=== PATIENT | male | born 2005 | race Caucasian/White ===

== ENCOUNTER 2024-05-08 23:00 | Emergency (ER) | payer OTHER ==
[~2024-05-08] VITALS: Ht 175.3 cm; Wt 84.0 kg
[2024-05-08 23:02] VITALS: O2SAT 97
[2024-05-08 23:07] VITALS: BP 139/82; PULSE 84; RESP 18; TEMP 38.8; O2SAT 98
[2024-05-09 00:05] LABS: BASOPHILS % 0.5 % (0.0-2.0); EOSINOPHILS % 0.3 % (0.0-5.0); HEMATOCRIT. 44.3 % (42.0-52.0); HEMOGLOBIN. 15.2 g/dL (14.0-18.0); LYMPHOCYTES % 9.9 % (20.0-50.0); MEAN CORPUSCULAR HEMOGLOBIN 31.3 pg (28.0-32.0); MEAN CORPUSCULAR HGB CONC 34.2 g/dL (31.0-37.0); MEAN CORPUSCULAR VOLUME 91.4 fL (80.0-94.0); MONOCYTES % 12.1 % (2.0-8.0); NEUTROPHILS % 77.2 % (40.0-76.0); PLATELET 185 x1000/uL (130-400); RED BLOOD CELL COUNT 4.85 mill/uL (4.7-6.1); RED CELL DISTRIBUTION WIDTH 12.8 % (11.6-14.6); WHITE BLOOD COUNT 9.7 x1000/uL (4.5-11.0)
[2024-05-09] MEDS ORDERED: AZIT250T12 MT (00:15)
[2024-05-09] MEDS ORDERED: IBUP-2030 MT (00:15)
[2024-05-09 00:16] LABS: CHLORIDE 105 mEq/L (98-107); POTASSIUM 4.7 mEq/L (3.5-5.1); SODIUM 141 mEq/L (136-145)
[2024-05-09 00:17] LABS: CALCIUM 9.2 mg/dL (8.7-10.4); CARBON DIOXIDE 31 mEq/L (21-32)
[2024-05-09 00:22] LABS: CREATININE 1.2 mg/dL (0.6-1.3); GLUCOSE 112 mg/dL (70-105); UREA NITROGEN BLOOD 11 mg/dL (9-23)
[2024-05-09] MEDS ORDERED: IBUPROFEN 800MG TABLET PO ONE (00:30)
== END 2024-05-09 00:27 | disposition home or self-care (01) ==
LOC: ER 23:00
DX: J02.9 Acute pharyngitis, unspecified (principal); R51.9 Headache, unspecified; Z79.899 Other long term (current) drug therapy
CPT/HCPCS: 36415; 80048; 85025; 99283